=== PATIENT | female | born 1955 | race Caucasian/White ===

== ENCOUNTER 2017-04-30 14:10 | Inpatient (IN) | payer BC, MEDICARE ==
[~2017-04-30] VITALS: Ht 160 cm; Wt 57.2 kg
[2017-04-30 14:42] LABS: BASOPHILS % (AUTO) 0.8 % (0.0-5.0); HEMATOCRIT 42.3 % (36-48); MEAN CORPUSCULAR HEMOGLOBIN 32.7 pg (27.0-33.0); MEAN CORPUSCULAR HGB CONC 34.6 g/dL (32.0-36.0); MEAN CORPUSCULAR VOLUME 94.4 fL (79-99); MONOCYTES % (AUTO) 7.9 % (3.0-13.0); NEUTROPHILS % (AUTO) 60.3 % (40.0-77.0); PLATELET COUNT (AUTO) 364 K/uL (130-400); RED BLOOD CELL COUNT(AUTO) 4.48 MIL/uL (4.00-5.50); WHITE BLOOD COUNT (AUTO) 7.2 K/uL (4.8-10.8)
[2017-04-30] MEDS ORDERED: IPRATROPIUM/ALBUTEROL SULFATE 3 ML SOLUTION IH ONE (14:50)
[2017-04-30] MEDS ORDERED: METHYLPREDNISOLONE SOD SUCC 125MG/2ML VIAL ONE (14:51)
[2017-04-30 14:52] LABS: CREATININE 0.7 mg/dL (0.5-1.5); POTASSIUM 4.8 mmol/L (3.5-5.1)
[2017-04-30 14:57] LABS: ALBUMIN 3.3 g/dL (3.5-5.0); BILIRUBIN,TOTAL 0.4 mg/dL (0.2-1.0); TOTAL PROTEIN, SERUM 7.1 g/dL (6.0-8.3)
[2017-04-30 15:14] LABS: INR 0.89 (0.85-1.15); PARTIAL THROMBOPLASTIN TIME 23.3 SEC (26.3-35.5); PROTHROMBIN TIME 9.4 SEC (9.6-11.6)
[2017-04-30 15:29] LABS: CREATINE KINASE MB 0.7 ng/mL (0.5-3.6)
[2017-04-30] MEDS ORDERED: GUAIFENESIN-DM 200/20 MG 10 ML PO PRN (16:30)
[2017-04-30] MEDS: AZITHROMYCIN 500MG+NS 250ML 250 ML IV SCH (16:30)
[2017-04-30] MEDS ORDERED: HYDRALAZINE HCL 20 MG/ML VIAL IV PRN (16:30)
[2017-04-30] MEDS ORDERED: ZOLPIDEM TARTRATE 5 MG TAB PO PRN (16:30)
[2017-04-30] MEDS ORDERED: CEFTRIAXONE 1GM/D5W 50ML 50 ML IV SCH (16:30)
[2017-04-30] MEDS ORDERED: LACTULOSE 20 GM/30 ML UDCUP PO PRN (16:30)
[2017-04-30] MEDS ORDERED: AZITHROMYCIN 500MG+NS 250ML 250 ML IV ONE (17:35)
[2017-04-30] MEDS ORDERED: BENZONATATE 100 MG CAPSULE PO ONE (17:35)
[2017-04-30] MEDS ORDERED: ENOXAPARIN SODIUM 40 MG/0.4 ML SYRINGE SQ ONE (17:52)
[2017-04-30 19:00] VITALS: BP 104/72
[2017-04-30] MEDS: CEFTRIAXONE SODIUM 1 GM IVP SCH ×2 (20:00→22:02)
[2017-04-30] MEDS: BENZONATATE 100 MG CAPSULE PO SCH (20:24)
[2017-04-30] MEDS: MORPHINE SULFATE 2 MG/ML 1ML SYG IV PRN (20:25)
[2017-04-30] MEDS: ONDANSETRON HCL 4 MG/2 ML VIAL IV PRN (20:26)
[2017-04-30] MEDS: IPRATROPIUM/ALBUTEROL SULFATE 3 ML SOLUTION IH PRN (23:31)
[2017-05-01] VITALS (7 sets, daily range): BP systolic 103–114; BP diastolic 60–78
[2017-05-01] MEDS: METHYLPREDNISOLONE SOD SUCC 125MG/2ML VIAL IV SCH ×3 (00:47→17:02)
[2017-05-01] MEDS: MORPHINE SULFATE 2 MG/ML 1ML SYG IV PRN ×6 (00:47→23:19)
[2017-05-01] MEDS ORDERED: PNEUMOCOCCAL VACCINE POLYVALENT 0.5 ML/VIAL [PPV] IM SCH (01:00)
[2017-05-01 04:38] LABS: BASOPHILS % (AUTO) 0.1 % (0.0-5.0); HEMATOCRIT 38.5 % (36-48); LYMPHOCYTES % (AUTO) 8.1 % (21.0-51.0); MEAN CORPUSCULAR HEMOGLOBIN 32.7 pg (27.0-33.0); MEAN CORPUSCULAR HGB CONC 34.5 g/dL (32.0-36.0); MEAN CORPUSCULAR VOLUME 94.8 fL (79-99); MONOCYTES % (AUTO) 1.7 % (3.0-13.0); PLATELET COUNT (AUTO) 357 K/uL (130-400); RED BLOOD CELL COUNT(AUTO) 4.06 MIL/uL (4.00-5.50); RED CELL DISTRIBUTION WIDTH 13.1 % (11.0-15.5); WHITE BLOOD COUNT (AUTO) 6.2 K/uL (4.8-10.8)
[2017-05-01 04:52] LABS: CREATININE 0.8 mg/dL (0.5-1.5); POTASSIUM 4.2 mmol/L (3.5-5.1)
[2017-05-01] MEDS: ONDANSETRON HCL 4 MG/2 ML VIAL IV PRN ×3 (04:56→18:58)
[2017-05-01 05:52] LABS: NEUTROPHILS % (AUTO) 90.1 % (40.0-77.0)
[2017-05-01] MEDS: IPRATROPIUM/ALBUTEROL SULFATE 3 ML SOLUTION IH PRN ×2 (06:14→11:11)
[2017-05-01] MEDS ORDERED: FLUO40CR TP (06:37)
[2017-05-01] MEDS ORDERED: BUDE10.2 IH (06:37)
[2017-05-01] MEDS ORDERED: FAMO10TA39 PO (06:37)
[2017-05-01] MEDS ORDERED: HYDR-305 PO (06:37)
[2017-05-01] MEDS ORDERED: ESTR0.9T2 PO (06:37)
[2017-05-01] MEDS ORDERED: LANS30CA53 PO (06:37)
[2017-05-01] MEDS ORDERED: AUD IH (06:37)
[2017-05-01] MEDS ORDERED: ALBU90AE IH (06:37)
[2017-05-01] MEDS ORDERED: MONT10TA21 PO (06:37)
[2017-05-01] MEDS ORDERED: RIVA20TA PO (06:37)
[2017-05-01] MEDS ORDERED: LORA1TAB3 PO (06:37)
[2017-05-01] MEDS ORDERED: ENOXAPARIN SODIUM 40 MG/0.4 ML SYRINGE SQ SCH (09:00)
[2017-05-01] MEDS: PANTOPRAZOLE SODIUM 40 MG TABLET.DR PO SCH (09:10)
[2017-05-01] MEDS: BENZONATATE 100 MG CAPSULE PO SCH ×3 (09:10→21:34)
[2017-05-01] MEDS ORDERED: TIOT18CA3 IH (11:13)
[2017-05-01] MEDS ORDERED: CYCL5TAB PO (11:13)
[2017-05-01] MEDS ORDERED: BENZ-51 PO (11:13)
[2017-05-01] MEDS ORDERED: LEVO125T11 PO (11:13)
[2017-05-01] MEDS ORDERED: GUAI400T79 PO (11:13)
[2017-05-01] MEDS ORDERED: BIOT1CAP3 PO (11:13)
[2017-05-01] MEDS ORDERED: BENZONATATE 100 MG CAPSULE PO PRN (12:30)
[2017-05-01] MEDS: AZITHROMYCIN 500MG+NS 250ML 250 ML IV SCH (17:02)
[2017-05-01] MEDS: IPRATROPIUM/ALBUTEROL SULFATE 3 ML SOLUTION IH SCH ×2 (19:05→23:46)
[2017-05-01] MEDS: EFUDEX TP SCH (21:00)
[2017-05-01] MEDS: LORAZEPAM 1 MG TABLET PO SCH (21:34)
[2017-05-01] MEDS: MONTELUKAST SODIUM 10 MG TAB PO SCH (21:34)
[2017-05-02] MEDS: ONDANSETRON HCL 4 MG/2 ML VIAL IV PRN ×3 (01:12→18:01)
[2017-05-02] MEDS: METHYLPREDNISOLONE SOD SUCC 125MG/2ML VIAL IV SCH ×4 (01:13→23:49)
[2017-05-02 03:00] VITALS: BP 100/62
[2017-05-02] MEDS: MORPHINE SULFATE 2 MG/ML 1ML SYG IV PRN ×4 (04:41→19:59)
[2017-05-02] MEDS ORDERED: LEVOTHYROXINE 125 MCG TABLET ONE (06:11)
[2017-05-02] MEDS: LEVOTHYROXINE 125 MCG TABLET PO SCH (06:40)
[2017-05-02] MEDS: IPRATROPIUM/ALBUTEROL SULFATE 3 ML SOLUTION IH SCH ×3 (06:41→18:32)
[2017-05-02] MEDS: PREMARIN 0.9 MG PO SCH (09:00)
[2017-05-02] MEDS: EFUDEX TP SCH ×2 (09:00→21:00)
[2017-05-02 09:08] VITALS: BP 118/70
[2017-05-02] MEDS: LORAZEPAM 1 MG TABLET PO SCH ×2 (10:09→21:43)
[2017-05-02] MEDS: BENZONATATE 100 MG CAPSULE PO SCH ×3 (10:09→21:43)
[2017-05-02] MEDS: RIVAROXABAN 20 MG TABLET PO SCH (10:09)
[2017-05-02] MEDS: PANTOPRAZOLE SODIUM 40 MG TABLET.DR PO SCH (10:09)
[2017-05-02 12:10] VITALS: BP 137/74
[2017-05-02] MEDS: AZITHROMYCIN 500MG+NS 250ML 250 ML IV SCH (14:52)
[2017-05-02 15:51] VITALS: BP 113/70
[2017-05-02] MEDS: FLUCONAZOLE 100 MG TAB PO SCH (18:01)
[2017-05-02] MEDS: NYSTATIN 100000 UNIT/ML 5ML UDCUP PO SCH ×2 (18:01→23:49)
[2017-05-02 19:10] VITALS: BP 115/64
[2017-05-02] MEDS: CEFTRIAXONE SODIUM 1 GM IVP SCH (19:59)
[2017-05-02] MEDS: MONTELUKAST SODIUM 10 MG TAB PO SCH (21:43)
[2017-05-02 23:05] VITALS: BP 121/74
[2017-05-03] MEDS: IPRATROPIUM/ALBUTEROL SULFATE 3 ML SOLUTION IH SCH ×3 (00:10→11:28)
[2017-05-03] MEDS: MORPHINE SULFATE 2 MG/ML 1ML SYG IV PRN ×3 (00:11→11:44)
[2017-05-03] MEDS: ONDANSETRON HCL 4 MG/2 ML VIAL IV PRN ×3 (00:12→11:43)
[2017-05-03 05:27] VITALS: BP 137/79
[2017-05-03] MEDS: NYSTATIN 100000 UNIT/ML 5ML UDCUP PO SCH ×2 (06:10→11:39)
[2017-05-03 06:20] LABS: BASOPHILS % (AUTO) 0.1 % (0.0-5.0); HEMATOCRIT 42.2 % (36-48); LYMPHOCYTES % (AUTO) 5.5 % (21.0-51.0); MEAN CORPUSCULAR HEMOGLOBIN 32.6 pg (27.0-33.0); MONOCYTES % (AUTO) 2.2 % (3.0-13.0); NEUTROPHILS % (AUTO) 92.2 % (40.0-77.0); PLATELET COUNT (AUTO) 404 K/uL (130-400); RED CELL DISTRIBUTION WIDTH 13.3 % (11.0-15.5); WHITE BLOOD COUNT (AUTO) 11.6 K/uL (4.8-10.8)
[2017-05-03 06:24] LABS: CREATININE 0.9 mg/dL (0.5-1.5)
[2017-05-03] MEDS: LEVOTHYROXINE 125 MCG TABLET PO SCH (06:43)
[2017-05-03 07:39] VITALS: BP 130/77
[2017-05-03] MEDS: EFUDEX TP SCH (09:00)
[2017-05-03] MEDS: PREMARIN 0.9 MG PO SCH (09:00)
[2017-05-03] MEDS: PANTOPRAZOLE SODIUM 40 MG TABLET.DR PO SCH (09:29)
[2017-05-03] MEDS: RIVAROXABAN 20 MG TABLET PO SCH (09:29)
[2017-05-03] MEDS: METHYLPREDNISOLONE SOD SUCC 125MG/2ML VIAL IV SCH (09:30)
[2017-05-03] MEDS: FLUCONAZOLE 100 MG TAB PO SCH (09:30)
[2017-05-03] MEDS: BENZONATATE 100 MG CAPSULE PO SCH ×2 (09:30→14:39)
[2017-05-03] MEDS: LORAZEPAM 1 MG TABLET PO SCH (09:30)
[2017-05-03 11:28] VITALS: BP 122/82
== END 2017-05-03 15:15 | disposition home or self-care (01) | DRG 192 ==
LOC: EDH 14:10 → EDHIP 16:25 → 3AH 18:08
PROVIDERS: ADMIT Family Medicine; ATTEND Family Medicine
PROC: 3E0234Z Introduction of Serum, Toxoid and Vaccine into Muscle, Percutaneous Approach (ICD-10-PCS; principal; 2017-04-30)
DX: J44.1 Chronic obstructive pulmonary disease with (acute) exacerbation (principal); J84.10 Pulmonary fibrosis, unspecified; E03.9 Hypothyroidism, unspecified; K21.9 Gastro-esophageal reflux disease without esophagitis; Z86.711 Personal history of pulmonary embolism; Z86.718 Personal history of other venous thrombosis and embolism; Z79.01 Long term (current) use of anticoagulants; Z90.2 Acquired absence of lung [part of]; Z90.710 Acquired absence of both cervix and uterus; Z88.2 Allergy status to sulfonamides; Z88.8 Allergy status to other drugs, medicaments and biological substances; Z91.041 Radiographic dye allergy status; Z87.891 Personal history of nicotine dependence; Z23 Encounter for immunization
CPT/HCPCS: 36415; 71045; 71250; 80048; 80053; 82550; 82553; 84484; 85025; 85378; 85610; 85730; 87804; 90732; 93005; 94640; 94664; A4218; G0009; J0456; J0696; J1650; J2405; J2930